=== PATIENT | female | born 1945 | race Caucasian/White ===

== ENCOUNTER 2021-03-14 12:58 | Emergency (ER) | payer MEDICARE, OTHER ==
[~2021-03-14] VITALS: Ht 162.6 cm; Wt 64.1 kg
[2021-03-14] MEDS ORDERED: ONDANSETRON PF 4 MG/2 ML VIAL. IVP ONE (13:30)
[2021-03-14] MEDS ORDERED: IV NORMAL SALINE 1,000ML 1,000 ML IV ONE (13:30)
--- NOTE | 2021-03-14 14:12 | PHYS DOC ---
General Adult EDM: Chief Complaint: NAUSEA/VOMITING/DIARRHEA HPI: HPI: 75-year-old female presents with vomiting and increased weakness. The patient was just placed on carbidopa-levodopa by her primary care physician. She has been having nausea and today she had episodes of vomiting. Patient just moved here from [facility]. She has Parkinson's disease as well as dementia. Family accompanies her and provides most of the history. This is her only recent medication change. Patient has not had a fever at home. She denies any significant pain. Review of Systems: Review of Systems: Constitutional: Denies fever or chills Eyes: Denies change in visual acuity HENT: Denies nasal congestion or sore throat Respiratory: Denies cough or shortness of breath Cardiovascular: Denies chest pain or edema GI: Nausea, vomiting. Denies abdominal pain, bloody stools or diarrhea : Denies dysuria Musculoskeletal: Denies back pain or joint pain Integument: Denies rash Neurologic: Denies headache, focal weakness or sensory changes Endocrine: Denies polyuria or polydipsia Lymphatic: Denies swollen glands Psychiatric: Denies depression or anxiety Current Medications: Current Meds: Current Medications Medications (Trade) Dose Ordered Sig/Emily Start Time Stop Time Status Last Admin Dose Admin Ondansetron HCl (Zofran) 4 mg 1X ONCE 03/14/21 13:30 03/14/21 13:34 DC 03/14/21 14:01 4 MG Sodium Chloride 1,000 ml @ 1,000 mls/hr 1X ONCE 03/14/21 13:30 03/14/21 14:29 03/14/21 14:00 1,000 MLS/HR Allergies: Allergies: Allergies Coded Allergies Type Severity Reaction Last Updated Verified No Known Drug Allergies 03/14/21 No Physical Exam: PE: Constitutional: Well developed, well nourished, no acute distress, non-toxic appearance. [] HENT: Normocephalic, atraumatic, bilateral external ears normal, oropharynx moist, no oral exudates, nose normal. [] Eyes: PERRLA, EOMI, conjunctiva normal, no discharge. [] Neck: no tenderness, supple, no stridor. [] Cardiovascular: Heart rate 66, regular rhythm, no murmur [] Lungs & Thorax: Bilateral breath sounds clear to auscultation [] Abdomen: Bowel sounds normal, soft, no tenderness, no masses, no pulsatile masses. [] Skin: Warm, dry, no erythema, no rash. [] Back: No tenderness, no CVA tenderness. [] Extremities: No tenderness, no cyanosis, no clubbing, ROM intact, no edema. [] Neurologic: Rhythmic movements of the upper extremities. [] Psychologic: Affect normal, judgement normal, mood normal. [] EKG: EKG: Sinus rhythm, rate 65, normal axis, no ST elevation or depression. [] Radiology/Procedures: Radiology/Procedures: [] Impressions: AP chest. HISTORY: Weakness AP view was taken of the chest. Heart is normal in size. There is no effusion. There is linear atelectasis in the left lung base. There is focal atelectasis or infiltrate in the right lung base. A nodule or mass is possible, follow-up study would be recommended. IMPRESSION: 1. Linear atelectasis left lung base. 2. Focal rounded appearing infiltrate versus mass right lung base. Electronically signed by: Robles Bowden MD (03/14/2021 2:49 PM) [facility] DICTATED AND SIGNED BY: ROBLES BOWDEN MD DATE: 03/14/21 1448 CC: JIM SMITH DO; YUN CAI MD ~MTH0 0 Heart Score: C/O Chest Pain: N/A Risk Factors: Risk Factors: DM, Current or recent (<one month) smoker, HTN, HLP, family history of CAD, obesity. Risk Scores: Score 0 - 3: 2.5% MACE over next 6 weeks - Discharge Home Score 4 - 6: 20.3% MACE over next 6 weeks - Admit for Clinical Observation Score 7 - 10: 72.7% MACE over next 6 weeks - Early Invasive Strategies Course & Med Decision Making: Course & Med Decision Making Pertinent Labs and Imaging studies reviewed. (See chart for details) I have given the patient 4 mg of Zofran and a liter of normal saline. EKG is unremarkable. Patient's labs are unremarkable. The patient's chest x-ray is abnormal findings. See official read for more details. Given her normal labs, no shortness of breath and normal vitals on room air, I believe infectious etiology is unlikely. Urinalysis is negative for infection. I will discharge her with a prescription for Zofran. She has an appointment to follow-up with Dr. Cai on Tuesday. She is stable for discharge at this time. [] Dragon Disclaimer: Dragon Disclaimer: This electronic medical record was generated, in whole or in part, using a voice recognition dictation system. Departure Departure: Impression: Primary Impression: Nausea & vomiting Qualified Codes: R11.2 - Nausea with vomiting, unspecified Disposition: HOME / SELF CARE / HOMELESS Condition: IMPROVED Referrals: YUN CAI MD (PCP) Patient Instructions: Nausea and Vomiting, [id number] JIM SMITH DO March 14, 2021 14:12
[2021-03-14 14:13] LABS: BASO % 1 % (0-3); EOS # 0.1 x10^3/uL (0.0-0.7); EOS % 1 % (0-3); HEMATOCRIT 42.2 % (36.0-47.0); HEMOGLOBIN 14.2 g/dL (12.0-15.5); LYMPH # 1.2 x10^3/uL (1.0-4.8); LYMPH % 21 % (24-48); MEAN CORPUSCULAR HEMOGLOBIN 31 pg (25-35); MEAN CORPUSCULAR HGB CONC 34 g/dL (31-37); MEAN CORPUSCULAR VOLUME 93 fL (79-100); MONO # 0.3 x10^3/uL (0.0-1.1); MONO % 5 % (0-9); NEUT # 3.9 x10^3uL (1.8-7.7); NEUT % 71 % (31-73); PLATELET COUNT 154 x10^3/uL (140-400); RED BLOOD COUNT 4.53 x10^6/uL (3.50-5.40); RED CELL DISTRIBUTION WIDTH 13.9 % (11.5-14.5); WHITE BLOOD COUNT 5.5 x10^3/uL (4.0-11.0)
[2021-03-14 14:23] LABS: CALCIUM 9.2 mg/dL (8.5-10.1); CREATININE 0.9 mg/dL (0.6-1.0); GFR 60.9
[2021-03-14 14:26] LABS: ALBUMIN/GLOBULIN RATIO 1.1 (1.0-1.7); TOTAL BILIRUBIN 0.7 mg/dL (0.2-1.0); TOTAL PROTEIN 7.5 g/dL (6.4-8.2)
--- NOTE | 2021-03-14 14:51 | RAD ---
AP chest. HISTORY: Weakness AP view was taken of the chest. Heart is normal in size. There is no effusion. There is linear atelec tasis in the left lung base. There is focal atelectasis or infiltrate in the right lung base. A nodul e or mass is possible, follow-up study would be recommended. IMPRESSION: 1. Linear atelectasis left lung base. 2. Focal rounded appearing infiltrate versus mass right lung base. Electronically signed by: Robles Bowden MD (03/14/2021 2:49 PM) [facility]
--- NOTE | 2021-03-14 14:58 | EKG ---
[address] [address] Test Date: 2021-03-14 Test Time: 14:08:24 Pat Name: GEOFFREY [place] Department: Room: Gender: F [employer] Server: ERAN : 1945 Requested By: JIM SMITH Order Number: [id number] Reading MD: Measurements Intervals [place] Rate: 65 P: 37 RI: 132 QRS: -2 QRSD: 86 T: 133 QT: 448 QTc: 472 Interpretive Statements SINUS RHYTHM LEFTWARD AXIS T ABNORMALITY IN ANTERIOR LEADS ABNORMAL ECG RI6.02 No previous ECG available for comparison
[2021-03-14 15:25] VITALS: BP 138/68
[2021-03-14 15:35] LABS: BILIRUBIN,URINE NEG (NEG); CLARITY,URINE HAZY; COLOR,URINE AMBER; GLUCOSE,URINE NEG (NEG)
[2021-03-14 15:36] LABS: BACTERIA,URINE FEW /HPF (0-FEW); HYALINE CASTS, URINE FEW /HPF; NITRITE,URINE NEG (NEG); RBC,URINE 0 /HPF (0-2); SQUAMOUS EPITHELIAL CELL,UR MOD /LPF; UROBILINOGEN,URINE 0.2 mg/dL (0.2 mg/dL)
[2021-03-14] MEDS ORDERED: ONDA4TAB12 PO (15:45)
== END 2021-03-14 15:50 | disposition home or self-care (01) ==
LOC: ER 12:58
DX: R11.2 Nausea with vomiting, unspecified (principal); R53.1 Weakness
CPT/HCPCS: 36415; 71045; 80053; 81001; 84484; 85025; 93005; 96361; 96374; 99285; J2405; J7030